=== PATIENT | female | born 1995 | race Caucasian/White ===

== ENCOUNTER → 2016-12-11 | Outpatient (REF) | payer OTHER, MEDICAID ==
[~2016-12-11] MED LIST: ACET50TA PO; DOCU10ELUD PO; IBUP600T26 PO; MOM30SS PO; PRIL20CA OR; PRIL40CA PO; SYNT112T OR; anusol TOP; colace; mom; mom OR; motrin; tylenol
== END | disposition home or self-care (01) ==
LOC: M SFHCLERA 10:06
PROVIDERS: ATTEND Nurse Practitioner Family
DX: R39.9 Unspecified symptoms and signs involving the genitourinary system (principal)

== ENCOUNTER → 2017-05-11 | Outpatient (REF) | payer MEDICAID, OTHER, SELFPAY | LOC: M SFHCLERA 14:06 | PROVIDERS: ATTEND Physician Assistant | DX: Z20.2 Contact with and (suspected) exposure to infections with a predominantly sexual mode of transmission (principal); N89.8 Other specified noninflammatory disorders of vagina ==

== ENCOUNTER → 2019-05-02 | Outpatient (REF) | payer OTHER ==
[~2019-05-02] MED LIST changes: -ACET50TA PO; -DOCU10ELUD PO; +DOCU5LIQ PO; +MAPA500T17 PO
[2019-05-02 12:40] LABS: HEMOGLOBIN 13.1 g/dl (12.0-15.5); MEAN CORPUSCULAR HEMOGLOBIN 29.1 pg (27.0-33.0); MEAN CORPUSCULAR HGB CONC 33.6 g/dl (32.0-36.5); MEAN CORPUSCULAR VOLUME 86.7 fl (80.0-96.0); PLATELET COUNT, AUTOMATED 249 10^3/uL (150-450); WHITE BLOOD COUNT 7.4 10^3/uL (4.0-10.0)
[2019-05-02 13:10] LABS: ALBUMIN 3.8 GM/DL (3.2-5.2); ALT/SGPT 53 U/L (12-78); BILIRUBIN,TOTAL 0.3 MG/DL (0.2-1.0); BLOOD UREA NITROGEN 5 MG/DL (7-18); CALCIUM LEVEL 8.9 MG/DL (8.5-10.1); CARBON DIOXIDE LEVEL 25 MEQ/L (21-32); CHLORIDE LEVEL 104 MEQ/L (98-107); CHOLESTEROL LEVEL 211 MG/DL (<200); CHOLESTEROL RISK RATIO 5.861 (<5); CREATININE FOR GFR 0.56 MG/DL (0.55-1.30); FREE T4 1.04 NG/DL (0.76-1.46); GLOMERULAR FILTRATION RATE > 60.0 (>60); GLUCOSE, FASTING 87 MG/DL (70-100); HDL CHOLESTEROL 36 MG/DL (>40); LDL CHOLESTEROL 155 MG/DL (<100); NON-HDL-C 175 MG/DL; POTASSIUM SERUM 4.2 MEQ/L (3.5-5.1); SODIUM LEVEL 138 MEQ/L (136-145); TOTAL PROTEIN 7.6 GM/DL (6.4-8.2); TRIGLYCERIDES LEVEL 99 MG/DL (<150)
== END ==
LOC: M SFHCLERA 09:42
PROVIDERS: ATTEND Nurse Practitioner Family
DX: Z13.220 Encounter for screening for lipoid disorders (principal); E03.8 Other specified hypothyroidism; N92.6 Irregular menstruation, unspecified
CPT/HCPCS: 80053; 80061; 81025; 84439; 84443; 84702; 85027; G0463

== ENCOUNTER → 2019-05-11 | Outpatient (REF) | payer OTHER ==
[2019-05-11 14:05] LABS: HEMATOCRIT 38.3 % (36.0-47.0); HEMOGLOBIN 13.2 g/dl (12.0-15.5); MEAN CORPUSCULAR HEMOGLOBIN 30.6 pg (27.0-33.0); MEAN CORPUSCULAR HGB CONC 34.5 g/dl (32.0-36.5); MEAN CORPUSCULAR VOLUME 88.9 fl (80.0-96.0); PLATELET COUNT, AUTOMATED 196 10^3/uL (150-450); RED BLOOD COUNT 4.31 10^6/uL (4.00-5.40)
[2019-05-11 14:20] LABS: HCG, SERUM QUANTITATIVE 11680 MIU/ML
[2019-05-11 14:24] LABS: HEPATITIS B SURFACE ANTIGEN NEGATIVE (NEGATIVE); RUBELLA IgG QUALITATIVE IMMUNE (IMMUNE)
[2019-05-11 14:52] LABS: HEPATITIS C VIRUS ABY INDEX 0.1 INDEX (<0.8)
[2019-05-11 14:53] LABS: HIV 1&2 SCREEN CENTAUR NEGATIVE (NEGATIVE)
== END ==
LOC: M LAB REF 12:41
PROVIDERS: ATTEND Nurse Practitioner Women's Health
DX: O36.80X0 Pregnancy with inconclusive fetal viability, not applicable or unspecified (principal)

== ENCOUNTER → 2019-06-09 | Outpatient (REF) | payer OTHER ==
[2019-06-09 13:54] LABS: FREE T4 0.89 NG/DL (0.76-1.46); THYROID STIMULATING HORMONE 4.29 uIU/ML (0.358-3.740)
== END ==
LOC: M LAB REF 12:35
PROVIDERS: ATTEND Nurse Practitioner Women's Health
DX: Z34.81 Encounter for supervision of other normal pregnancy, first trimester (principal)

== ENCOUNTER → 2019-08-04 | Outpatient (REF) | payer OTHER ==
[2019-08-04 13:52] LABS: FREE T4 0.89 NG/DL (0.76-1.46); THYROID STIMULATING HORMONE 3.15 uIU/ML (0.358-3.740)
== END ==
LOC: M LAB REF 12:36
PROVIDERS: ATTEND Nurse Practitioner Women's Health
DX: E03.9 Hypothyroidism, unspecified (principal)

== ENCOUNTER → 2019-10-13 | Outpatient (CLI) | payer OTHER ==
[2019-10-13 11:51] LABS: HEMATOCRIT 34.8 % (36.0-47.0); HEMOGLOBIN 11.8 g/dl (12.0-15.5); MEAN CORPUSCULAR HEMOGLOBIN 30.1 pg (27.0-33.0); MEAN CORPUSCULAR HGB CONC 33.9 g/dl (32.0-36.5); MEAN CORPUSCULAR VOLUME 88.8 fl (80.0-96.0); PLATELET COUNT, AUTOMATED 175 10^3/uL (150-450); RED BLOOD COUNT 3.92 10^6/uL (4.00-5.40); WHITE BLOOD COUNT 8.3 10^3/uL (4.0-10.0)
[2019-10-13 12:21] LABS: FREE T4 0.89 NG/DL (0.76-1.46); THYROID STIMULATING HORMONE 2.15 uIU/ML (0.358-3.740)
== END ==
LOC: M LRY 09:02
PROVIDERS: ATTEND Nurse Practitioner Women's Health
DX: Z36.89 Encounter for other specified antenatal screening (principal); O99.284 Endocrine, nutritional and metabolic diseases complicating childbirth; E03.9 Hypothyroidism, unspecified; Z3A.00 Weeks of gestation of pregnancy not specified

== ENCOUNTER → 2019-10-21 | Outpatient (CLI) | payer OTHER | LOC: M LAB 08:07 | PROVIDERS: ATTEND Nurse Practitioner Women's Health | DX: R73.02 Impaired glucose tolerance (oral) (principal) ==

== ENCOUNTER → 2019-11-16 | Outpatient (REF) | payer OTHER ==
[2019-11-17 13:45] LABS: APPEARANCE, URINE CLEAR (CLEAR); BACTERIA, URINE AUTO 1+ (NEGATIVE); BILIRUBIN, URINE AUTO NEGATIVE (NEGATIVE); BLOOD, URINE BLOOD 1+ (NEGATIVE); COLOR, URINE STRAW (YELLOW); GLUCOSE, URINE (UA) AUTO NEGATIVE (NEGATIVE); KETONE, URINE AUTO NEGATIVE (NEGATIVE); LEUKOCYTE ESTERASE, URINE AUTO NEGATIVE (NEGATIVE); MUCUS, URINE SMALL (NEGATIVE); NITRITE, URINE AUTO NEGATIVE (NEGATIVE); PROTEIN, URINE AUTO NEGATIVE (NEGATIVE); RBC, URINE AUTO 0 /HPF (0-3); SPECIFIC GRAVITY URINE AUTO 1.005 (1.002-1.035); SQUAMOUS EPITHELIAL CELL UR AU 1 /HPF (0-6); UROBILINOGEN, URINE AUTO 0.2 mg/dL (0.0-2.0); WBC, URINE AUTO 0 /HPF (0-3)
== END ==
LOC: M LAB REF 12:09
PROVIDERS: ATTEND Obstetrics & Gynecology
DX: R10.30 Lower abdominal pain, unspecified (principal)

== ENCOUNTER → 2019-11-18 | Outpatient (REF) | payer OTHER ==
[2019-11-18 17:04] LABS: FREE T4 0.91 NG/DL (0.76-1.46); THYROID STIMULATING HORMONE 2.5 uIU/ML (0.358-3.740)
== END ==
LOC: M SFHCLERA 12:24
PROVIDERS: ATTEND Nurse Practitioner Family
DX: E03.8 Other specified hypothyroidism (principal)
CPT/HCPCS: 84439; 84443; G0463

== ENCOUNTER → 2019-12-08 | Outpatient (REF) | payer OTHER | LOC: M LAB REF 12:51 | PROVIDERS: ATTEND Obstetrics & Gynecology | DX: Z34.83 Encounter for supervision of other normal pregnancy, third trimester (principal) ==

== ENCOUNTER 2019-12-18 09:54 | Outpatient (CLI) | payer OTHER ==
[~2019-12-18] VITALS: Ht 167.6 cm; Wt 145.4 kg
[2019-12-18 10:19] VITALS: BP 126/70
[2019-12-18] MEDS ORDERED: PRENTAB9 PO (10:34)
[2019-12-18 10:35] VITALS: BP 123/70
[2019-12-18 10:51] VITALS: BP 134/75
[2019-12-18 11:24] VITALS: BP 124/80
[2019-12-18 11:29] LABS: BASO % 0.4 % (0.0-1.0); EOS % 0.8 % (0.0-3.0); HEMATOCRIT 34.5 % (36.0-47.0); HEMOGLOBIN 11.4 g/dl (12.0-15.5); LYMPH # 0.7 10^3/uL (1.5-5.0); LYMPH % 13.9 % (24.0-44.0); MEAN CORPUSCULAR HEMOGLOBIN 28.4 pg (27.0-33.0); MONO # 0.6 10^3/uL (0.0-0.8); MONO % 11.3 % (0.0-5.0); NEUTROPHILS # 3.9 10^3/uL (1.5-8.5); NEUTROPHILS % 73.4 % (36.0-66.0); PLATELET COUNT, AUTOMATED 143 10^3/uL (150-450); RED BLOOD COUNT 4.01 10^6/uL (4.00-5.40); WHITE BLOOD COUNT 5.2 10^3/uL (4.0-10.0)
[2019-12-18 11:38] VITALS: BP 130/80
[2019-12-18 11:51] VITALS: BP 119/76
[2019-12-18 11:53] LABS: CREATININE,RANDOM URINE 70.8 MG/DL; TOTAL PROTEIN,RANDOM URINE 16.5 MG/DL (0.0-12.0)
[2019-12-18 11:58] LABS: ALBUMIN 2.7 GM/DL (3.2-5.2); ALT/SGPT 29 U/L (12-78); BILIRUBIN,TOTAL 0.2 MG/DL (0.2-1.0); BLOOD UREA NITROGEN 4 MG/DL (7-18); CARBON DIOXIDE LEVEL 22 MEQ/L (21-32); CHLORIDE LEVEL 108 MEQ/L (98-107); CREATININE FOR GFR 0.48 MG/DL (0.55-1.30); GLOMERULAR FILTRATION RATE > 60.0 (>60); GLUCOSE, FASTING 81 MG/DL (70-100); POTASSIUM SERUM 4.2 MEQ/L (3.5-5.1); SODIUM LEVEL 139 MEQ/L (136-145); TOTAL PROTEIN 6.5 GM/DL (6.4-8.2); URIC ACID 3.6 MG/DL (2.6-6.0)
[2019-12-18] MEDS ORDERED: ACETAMINOPHEN 500 MG TAB As Ordered ONE (12:17)
[2019-12-18] MEDS ORDERED: ACETAMINOPHEN 500 MG TAB PO ONE (12:45)
[2019-12-18] MEDS ORDERED: LR 1,000 ML IV SCH (13:00)
== END 2019-12-18 14:19 | disposition home or self-care (01) ==
LOC: M LDO 09:54
PROVIDERS: ATTEND Obstetrics & Gynecology
DX: Z03.79 Encounter for other suspected maternal and fetal conditions ruled out (principal); R03.0 Elevated blood-pressure reading, without diagnosis of hypertension; O99.280 Endocrine, nutritional and metabolic diseases complicating pregnancy, unspecified trimester; E03.9 Hypothyroidism, unspecified; O24.313 Unspecified pre-existing diabetes mellitus in pregnancy, third trimester; E11.9 Type 2 diabetes mellitus without complications; Z3A.37 37 weeks gestation of pregnancy
CPT/HCPCS: 59025; 80053; 82570; 84156; 84550; 85025; G0378; G0463

== ENCOUNTER 2019-12-27 15:08 | Inpatient (IN) | payer OTHER ==
[2019-12-27] VITALS (21 sets, daily range): BP systolic 138–192; BP diastolic 76–114
[~2019-12-27] VITALS: Ht 167.6 cm; Wt 143.6 kg
[~2019-12-27 15:08] MED LIST changes: +PRENTAB9 PO
[2019-12-27] MEDS ORDERED: LACTATED RINGER'S 1000 ML IV STA (15:34)
[2019-12-27] MEDS ORDERED: LR 1,000 ML IV SCH (15:34)
[2019-12-27] MEDS ORDERED: miSOPROStol 50 MCG 1/2 TAB (S0191) PO SCH (15:45)
[2019-12-27 17:32] LABS: HEMOGLOBIN 11.5 g/dl (12.0-15.5); MEAN CORPUSCULAR HEMOGLOBIN 29.3 pg (27.0-33.0); MEAN CORPUSCULAR HGB CONC 34.8 g/dl (32.0-36.5); MEAN CORPUSCULAR VOLUME 84.2 fl (80.0-96.0); PLATELET COUNT, AUTOMATED 159 10^3/uL (150-450); RED BLOOD COUNT 3.92 10^6/uL (4.00-5.40); WHITE BLOOD COUNT 5.7 10^3/uL (4.0-10.0)
[2019-12-27 18:02] LABS: ALT/SGPT 22 U/L (12-78); BILIRUBIN,TOTAL 0.2 MG/DL (0.2-1.0); BLOOD UREA NITROGEN 6 MG/DL (7-18); CARBON DIOXIDE LEVEL 22 MEQ/L (21-32); CHLORIDE LEVEL 108 MEQ/L (98-107); CREATININE FOR GFR 0.37 MG/DL (0.55-1.30); GLOMERULAR FILTRATION RATE > 60.0 (>60); GLUCOSE, FASTING 75 MG/DL (70-100); LDH LACTATE DEHYDROGENASE 255 U/L (84-246); SODIUM LEVEL 140 MEQ/L (136-145); URIC ACID 4.3 MG/DL (2.6-6.0)
[2019-12-27 18:55] LABS: TOTAL PROTEIN,RANDOM URINE 45.6 MG/DL (0.0-12.0)
[2019-12-27] MEDS ORDERED: OXYTOCIN 30 UNITS IN 0.9% NaCl 500ML IV BAG (J2590) As Ordered ONE (20:56)
[2019-12-27] MEDS ORDERED: OXYTOCIN DRIP 30 UNITS in IV 1 EA IV SCH (21:00)
[2019-12-27] MEDS ORDERED: ACETAMINOPHEN 500 MG TAB PO ONE (21:00)
[2019-12-27] MEDS ORDERED: MAGNESIUM *L&D* 4 GM/100 ML BAG (40MG/ML) (J3475) IV ONE (21:45)
[2019-12-27 22:14] LABS: ALT/SGPT 19 U/L (12-78); BILIRUBIN,TOTAL 0.2 MG/DL (0.2-1.0); CREATININE FOR GFR 0.48 MG/DL (0.55-1.30); GLOMERULAR FILTRATION RATE > 60.0 (>60); LDH LACTATE DEHYDROGENASE 176 U/L (84-246); URIC ACID 4.4 MG/DL (2.6-6.0)
[2019-12-27] MEDS ORDERED: FENTANYL 2MCG/ML ROPIVACAINE 0.2% IN 0.9% NACL 100ML IVBAG As Ordered ONE (22:36)
[2019-12-27] MEDS: MAG Sulf (OBGYN) 20GM/500ML 20,000 MG in IV 1 EA IV SCH (22:50)
[2019-12-27] MEDS ORDERED: EPIDURAL/PCA KEYS XX PRN (23:30)
[2019-12-27] MEDS ORDERED: ePHEDrine SULFATE 25 MG/5 ML(5MG/ML) SYRINGE IV PRN (23:30)
[2019-12-27] MEDS ORDERED: diphenhydrAMINE INJ 50MG/ML VIAL (J1200) IV PRN (23:30)
[2019-12-27] MEDS ORDERED: ONDANSETRON 4MG/2ML VIAL (J2405) IV PRN (23:30)
[2019-12-27] MEDS ORDERED: LACTATED RINGER'S 1000 ML IV PRN (23:30)
[2019-12-27] MEDS ORDERED: FENTANYL/ROPIVACAINE/NACL BAG 100 ML EPIDURAL SCH (23:30)
[2019-12-27] MEDS ORDERED: EPIDURAL COMMENT XX SCH (23:30)
[2019-12-27] MEDS ORDERED: REFRIGERATOR IV KEYS XX PRN (23:30)
[2019-12-27] MEDS ORDERED: NALOXONE INJ 0.4 MG/1 ML VIAL (J2310) IV PRN (23:30)
[2019-12-28] VITALS (25 sets, daily range): BP systolic 106–177; BP diastolic 54–106
[2019-12-28] MEDS ORDERED: LR 1,000 ML IV SCH (04:41)
[2019-12-28] MEDS ORDERED: ACETAMINOPHEN TAB 650MG DOSE (2X325MG) PO PRN (04:45)
[2019-12-28] MEDS ORDERED: RHOGAM 300 MCG (1500 IU) INJ (J2790) IM SCH (04:45)
[2019-12-28] MEDS ORDERED: METHYLERGONOVINE MALEATE 0.2 MG TAB PO PRN (04:45)
[2019-12-28] MEDS ORDERED: ANUSOL HC CREAM 30GM TOP PRN (04:45)
[2019-12-28] MEDS ORDERED: MEASLES,MUMPS,RUBELLA VACCINE INJ (MMR-II) (90707) SC SCH (04:45)
[2019-12-28] MEDS ORDERED: DIBUCAINE 1% OINTMENT 30GM TOP PRN (04:45)
[2019-12-28 04:49] LABS: CORD GAS ABE A -2.9; CORD GAS ABE V -2.9; CORD GAS HCO3 A 24.4 MEQ/L; CORD GAS HCO3 V 22.5 MEQ/L; CORD GAS O2 SAT A 37.8 %; CORD GAS O2 SAT V 65.5 %; CORD GAS PCO2 A 52.3 mmHg; CORD GAS PCO2 V 41.5 mmHg; CORD GAS PH A 7.287 UNITS; CORD GAS PH V 7.352 UNITS; CORD GAS PO2 A 20.9 mmHg; CORD GAS PO2 V 29.1 mmHg; CORD GAS SBC A 20.7 MEQ/L; CORD GAS SBC V 21.3 MEQ/L; CORD GAS TCO2 V 23.8 MEQ/L
[2019-12-28] MEDS: MAG Sulf (OBGYN) 20GM/500ML 20,000 MG in IV 1 EA IV SCH (05:27)
[2019-12-28] MEDS: LEVOTHYROXINE 25MCG TABLET (0.025MG) PO SCH (06:57)
--- NOTE | 2019-12-28 07:31 | HPE ---
DATE OF ADMISSION: 12/27/2019 Karly is a 24-year-old female 2, para 1-0-0-1 with an estimated date of confinement (EDC) of 01/03/2020, estimated gestational age (EGA) 39 weeks gestation. The patient has a history of gestational diabetes diet controlled, hypothyroidism currently on Synthroid and obesity. She presented after having an ultrasound done today which shows severe oligohydramnios with an KAYLEIGH of 4.1. Given the KAYLEIGH and her remaining comorbid conditions, a decision was made to admit the patient for induction. Upon admission, no bleeding, no leakage of fluid. Her records were reviewed. Other than the diabetes, obesity and her hyperthyroidism, it was essentially unremarkable. LABS: Blood type is B positive. Rubella immune. Hepatitis negative. HIV negative. GC and chlamydia negative. Group B Streptococcus (GBS) is negative. PAST MEDICAL HISTORY: Significant for: Hypothyroidism. Obesity. Gestational diabetes. PAST SURGICAL HISTORY: Pilonidal cyst removal in 2012. SOCIAL HISTORY: She is . Denies any alcohol, drugs or cigarette smoking. REVIEW OF SYSTEMS: Unremarkable. MEDICATIONS: - vitamins - Synthroid ALLERGIES: No known drug allergies. PHYSICAL EXAMINATION ON ADMISSION: Obese female in no acute distress. Blood pressures is ranging in the 140-160 systolic with a diastolic of 85-95. Her abdomen is soft, nontender, nondistended. Extremities no clubbing, cyanosis, +1 lower extremity edema. Vaginal exam 2 cm dilated, 70-80% effaced, fetus at -3 station in a vertex position. Ultrasound done today shows an KAYLEIGH of 4.1, fetus in the 50th percentile for weight. Labs reviewed. Platelet count of 150. Uric acid of 4.5. Urine protein/creatinine ratio of 0.41. LFTs within normal limits. Fingerstick on admission 106. ASSESSMENT: 1. Intrauterine at 39 weeks gestation. 2. Severe oligohydramnios. 3. Gestational diabetes diet controlled. 4. Hypothyroidism well controlled with Synthroid. 5. Obesity. PLAN: The patient will be admitted to labor and delivery. Given her current condition Induction process discussed with the patient in grave detail. Her risks were also discussed. Will initiate Cytotec induction. Will consider magnesium sulfate if the patient becomes symptomatic or her blood pressure continues to rise. Antihypertensive meds will also be considered. Pain management discussed. The patient opted for an epidural. Will continue to monitor. Anticipate delivery.
[2019-12-28 07:47] LABS: HEMATOCRIT 33.5 % (36.0-47.0); HEMOGLOBIN 11.8 g/dl (12.0-15.5); MEAN CORPUSCULAR HEMOGLOBIN 29.4 pg (27.0-33.0); MEAN CORPUSCULAR HGB CONC 35.2 g/dl (32.0-36.5); MEAN CORPUSCULAR VOLUME 83.3 fl (80.0-96.0); PLATELET COUNT, AUTOMATED 168 10^3/uL (150-450); RED BLOOD COUNT 4.02 10^6/uL (4.00-5.40); WHITE BLOOD COUNT 10.9 10^3/uL (4.0-10.0)
[2019-12-28 08:17] LABS: ALT/SGPT 21 U/L (12-78); BILIRUBIN,TOTAL 0.3 MG/DL (0.2-1.0); CREATININE FOR GFR 0.49 MG/DL (0.55-1.30); GLOMERULAR FILTRATION RATE > 60.0 (>60); LDH LACTATE DEHYDROGENASE 242 U/L (84-246); MAGNESIUM LEVEL 3.9 MG/DL (1.8-2.4); URIC ACID 4.7 MG/DL (2.6-6.0)
[2019-12-28] MEDS: PRENATAL VITAMINS CHEWABLE TABLET PO SCH (09:32)
[2019-12-28] MEDS ORDERED: MAG Sulf (OBGYN) 20GM/500ML 20,000 MG in IV 1 EA IV SCH (10:00)
--- NOTE | 2019-12-28 15:18 | DN ---
DATE OF DELIVERY: 12/28/2019 Karly is a 24-year-old female 2, para 1 with history of gestational diabetes diet control, hypothyroidism found to be with oligohydramnios. She was brought into the hospital and induced with one dose of Cytotec followed by Pitocin and artificial rupture of membranes. After an epidural, she progressed to fully dilated. She then pushed and delivered a live male infant in right occiput anterior position with a nuchal cord times one over an intact perineum. 9/9, weight 7 pounds 14 ounces. Placenta delivered spontaneously intact. Three-vessel cord. Perineum, vagina and cervix inspected. No laceration. Estimated blood loss 300 mL. Both mother and baby in stable condition.
[2019-12-28] MEDS: ACETAMINOPHEN 500 MG TAB PO PRN ×2 (16:11→22:09)
[2019-12-28] MEDS: HEPARIN SOD (PORCINE) 5000 UNITS/ML VIAL (J1644 PER 1000UNITS) SQ SCH ×2 (21:00→22:09)
[2019-12-28] MEDS: LABETALOL 200 MG TAB PO SCH ×2 (21:00→21:21)
[2019-12-28] MEDS: DOCUSATE SODIUM 100 MG CAP PO SCH ×2 (21:00→21:20)
[2019-12-29] VITALS (10 sets, daily range): BP systolic 137–158; BP diastolic 69–88
[2019-12-29] MEDS ORDERED: LEVOTHYROXINE 75MCG TABLET (0.075MG) PO SCH (06:00)
[2019-12-29] MEDS: ACETAMINOPHEN 500 MG TAB PO PRN ×2 (07:15→23:14)
[2019-12-29] MEDS: LABETALOL 200 MG TAB PO SCH ×2 (08:46→21:07)
[2019-12-29] MEDS: DOCUSATE SODIUM 100 MG CAP PO SCH ×2 (08:46→21:07)
[2019-12-29] MEDS: PRENATAL VITAMINS CHEWABLE TABLET PO SCH (08:46)
[2019-12-29] MEDS: HEPARIN SOD (PORCINE) 5000 UNITS/ML VIAL (J1644 PER 1000UNITS) SQ SCH (08:53)
[2019-12-29] MEDS ORDERED: SLF 3 ML SYR IV PRN (09:15)
[2019-12-29] MEDS ORDERED: SLF 3 ML SYR IV SCH (14:00)
[2019-12-30 02:00] VITALS: BP 147/71
[2019-12-30 06:00] VITALS: BP 147/77
[2019-12-30] MEDS: LEVOTHYROXINE 25MCG TABLET (0.025MG) PO SCH (06:41)
[2019-12-30] MEDS ORDERED: ADACEL/BOOSTRIX VACCINE (DIPHTH/PERTUSS/ACELL/TETANUS)0.5ML SYR (90715) IM ONE (09:00)
[2019-12-30] MEDS ORDERED: LABE20TAB PO (09:00)
[2019-12-30] MEDS: PRENATAL VITAMINS CHEWABLE TABLET PO SCH (09:00)
[2019-12-30] MEDS: DOCUSATE SODIUM 100 MG CAP PO SCH (09:29)
[2019-12-30 09:32] VITALS: BP 137/74
[2019-12-30] MEDS: LABETALOL 200 MG TAB PO SCH (09:32)
== END 2019-12-30 13:30 | disposition home or self-care (01) | DRG 806 ==
LOC: EEVIPCON 15:08 → M LDI 15:08 → M OBS 12-29 10:28 → M LDI 12-29 10:31 → M PCU 12-29 10:38 → M LDI 12-29 10:47 → M OBS 12-29 15:20
PROVIDERS: ADMIT Obstetrics & Gynecology; ATTEND Obstetrics & Gynecology
PROC: 3E0P7GC Introduction of Other Therapeutic Substance into Female Reproductive, Via Natural or Artificial Opening (ICD-10-PCS; 2019-12-27)
PROC: 10E0XZZ Delivery of Products of Conception, External Approach (ICD-10-PCS; principal; 2019-12-28)
PROC: 10907ZC Drainage of Amniotic Fluid, Therapeutic from Products of Conception, Via Natural or Artificial Opening (ICD-10-PCS; 2019-12-28)
DX: O24.420 Gestational diabetes mellitus in childbirth, diet controlled (principal); Z37.0 Single live birth; O41.03X0 Oligohydramnios, third trimester, not applicable or unspecified; Z3A.39 39 weeks gestation of pregnancy; O99.284 Endocrine, nutritional and metabolic diseases complicating childbirth; E03.9 Hypothyroidism, unspecified; O99.214 Obesity complicating childbirth; E66.9 Obesity, unspecified; O69.81X0 Labor and delivery complicated by cord around neck, without compression, not applicable or unspecified

== ENCOUNTER → 2020-08-01 | Outpatient (CLI) | payer OTHER ==
[~2020-08-01] MED LIST changes: +LABE20TAB PO
--- NOTE | 2020-08-07 11:23 | REP ---
FIRST TRIMESTER OBSTETRICAL ULTRASOUND CLINICAL: Dating and viability. TECHNIQUE: Transabdominal first trimester obstetrical ultrasound with color Doppler evaluation. FINDINGS: Bladder is normal and measures 14.4 x 6.3 x 10.1 cm. Single live early intrauterine identified. Gestational sac with yolk sac and pole noted. [place]-rump length (CRL) of 19 mm corresponds to 8 weeks 3 days gestational age with estimated date of delivery 03/10/2021. heart rate equals 171 beats per minute. IMPRESSION: Single live intrauterine at 8 weeks 3 days gestational age. Complete anatomical assessment should be performed at 19-20 weeks. MTDD
== END ==
LOC: M RAD 08:59
PROVIDERS: ATTEND Obstetrics & Gynecology
DX: Z34.81 Encounter for supervision of other normal pregnancy, first trimester (principal); Z3A.08 8 weeks gestation of pregnancy

== ENCOUNTER → 2020-09-03 | Outpatient (CLI) | payer OTHER ==
[2020-09-03 18:07] LABS: BASO % 0.4 % (0.0-1.0); EOS # 0.1 10^3/uL (0.0-0.5); EOS % 1.6 % (0.0-3.0); HEMOGLOBIN 12.2 g/dl (12.0-15.5); LYMPH # 1.6 10^3/uL (1.5-5.0); LYMPH % 22.8 % (24.0-44.0); MEAN CORPUSCULAR HEMOGLOBIN 29.1 pg (27.0-33.0); MEAN CORPUSCULAR HGB CONC 33.9 g/dl (32.0-36.5); MEAN CORPUSCULAR VOLUME 85.9 fl (80.0-96.0); MONO # 0.3 10^3/uL (0.0-0.8); MONO % 4.8 % (0.0-5.0); NEUTROPHILS # 4.8 10^3/uL (1.5-8.5); PLATELET COUNT, AUTOMATED 191 10^3/uL (150-450); RED BLOOD COUNT 4.19 10^6/uL (4.00-5.40); WHITE BLOOD COUNT 6.9 10^3/uL (4.0-10.0)
[2020-09-03 18:12] LABS: APPEARANCE, URINE HAZY (CLEAR); BACTERIA, URINE AUTO 1+ (NEGATIVE); BILIRUBIN, URINE AUTO NEGATIVE (NEGATIVE); BLOOD, URINE BLOOD NEGATIVE (NEGATIVE); COLOR, URINE YELLOW (YELLOW); GLUCOSE, URINE (UA) AUTO NEGATIVE (NEGATIVE); KETONE, URINE AUTO NEGATIVE (NEGATIVE); LEUKOCYTE ESTERASE, URINE AUTO NEGATIVE (NEGATIVE); NITRITE, URINE AUTO NEGATIVE (NEGATIVE); PROTEIN, URINE AUTO NEGATIVE (NEGATIVE); RBC, URINE AUTO 0 /HPF (0-3); SPECIFIC GRAVITY URINE AUTO 1.015 (1.002-1.035); SQUAMOUS EPITHELIAL CELL UR AU 1 /HPF (0-6); UROBILINOGEN, URINE AUTO 0.2 mg/dL (0.0-2.0); WBC, URINE AUTO 0 /HPF (0-3)
[2020-09-03 18:23] LABS: TOTAL PROTEIN,RANDOM URINE 10.3 MG/DL (0.0-12.0)
[2020-09-03 18:30] LABS: ALBUMIN 3.3 GM/DL (3.2-5.2); ALT/SGPT 24 U/L (12-78); BILIRUBIN,DIRECT < 0.1 MG/DL (0.0-0.2); BILIRUBIN,TOTAL 0.1 MG/DL (0.2-1.0); BLOOD UREA NITROGEN 8 MG/DL (7-18); CREATININE FOR GFR 0.46 MG/DL (0.55-1.30); FREE T3 2.8 PG/ML (2.2-4.0); FREE T4 0.92 NG/DL (0.76-1.46); GLOMERULAR FILTRATION RATE > 60.0 (>60); GLUCOSE,RANDOM 102 MG/DL (LESS THAN 200); TOTAL PROTEIN 7.1 GM/DL (6.4-8.2); URIC ACID 2.6 MG/DL (2.6-6.0)
[2020-09-03 18:41] LABS: HEPATITIS B SURFACE ANTIGEN NEGATIVE (NEGATIVE)
[2020-09-03 19:09] LABS: HIV 1&2 SCREEN CENTAUR NEGATIVE (NEGATIVE)
== END ==
LOC: M LAB 16:47
PROVIDERS: ATTEND Nurse Practitioner Adult Health
DX: Z34.81 Encounter for supervision of other normal pregnancy, first trimester (principal); Z3A.00 Weeks of gestation of pregnancy not specified

== ENCOUNTER → 2020-10-05 | Outpatient (CLI) | payer OTHER ==
[2020-10-05 17:11] LABS: FREE T4 0.98 NG/DL (0.76-1.46); THYROID STIMULATING HORMONE 3.2 uIU/ML (0.358-3.740)
== END ==
LOC: M WUC 14:35
PROVIDERS: ATTEND Nurse Practitioner Family
DX: E06.3 Autoimmune thyroiditis (principal)

== ENCOUNTER → 2020-10-15 | Outpatient (CLI) | payer OTHER ==
--- NOTE | 2020-10-16 10:22 | REP ---
INDICATION: ANATOMY. COMPARISON: Comparison study August 01, 2020.. TECHNIQUE: Transabdominal obstetric sonography. FINDINGS: Scanning through the gravid uterus demonstrates a viable single intrauterine gestation in cephalic lie. motion is observed and heart rate is recorded at 163 beats per minute. A posterior placenta is seen, grade 0, without evidence of placenta previa. Amniotic fluid is subjectively normal. Closed cervical length is measured at 4.8 cm transabdominally. No extrauterine abnormality is observed. The following anatomic structures are identified felt to be unremarkable today: Choroid plexus, orbits, diaphragm, left-sided stomach, abdominal wall cord insertion, urinary bladder, spine, upper and lower extremities, and 3 vessel cord. Exam quality was inhibited by maternal body habitus. Other anatomic structures are less than optimally seen.. Biometry chart: BPD 4.7 cm, 20 weeks 1 day Head circumference 16.9 cm, 19 weeks 4 days Abdominal circumference 14.6 cm, 19 weeks 6 days Femur length 3.4 cm, 20 weeks 6 days Humeral length 3.1 cm, 20 weeks 2 days HC AC ratio normal 1.16 Cephalic index normal 0.78 Estimated weight 341 g, 0 lb 12 oz IMPRESSION: Viable single intrauterine gestation at 20 weeks 1 days by today's composite sonographic criteria. RAFAEL by today's sonography March 03, 2021. No complication identified. Expected gestational age estimate based on prior sonography is 20 weeks 0 days. RAFAEL by prior sonography March 04, 2021. anatomic survey incomplete due to position and maternal body habitus. <Electronically signed by Denzel Molina > 10/16/20 1514
== END ==
LOC: M RAD 15:49
PROVIDERS: ATTEND Obstetrics & Gynecology Obstetrics
DX: Z34.82 Encounter for supervision of other normal pregnancy, second trimester (principal)

== ENCOUNTER → 2020-11-05 | Outpatient (CLI) | payer OTHER ==
--- NOTE | 2020-11-05 09:43 | REP ---
INDICATION: ENCOUNTER FOR SUPERVISION OF NORMAL PREG SECOND TRIMESTER COMPARISON: 10/15/2020 TECHNIQUE: Transabdominal obstetrical ultrasound with color Doppler evaluation. FINDINGS: Examination demonstrates a single live intrauterine in cephalic presentation. motion is identified by technologist. Placenta is noted posterior/fundal and grade 1 without evidence for placenta previa or abruption. Amniotic fluid volume is normal. Cervix measures 4.8 cm in length and appears closed. No evidence for placental abruption. Gestational age by LMP 23 weeks 0 days with RAFAEL 03/04/2021. Gestational age by current measurements 22 weeks 2 days with RAFAEL 03/09/2021. FHR equals 163 beats per minute. Estimated weight 499 grams (14thpercentile). Anatomical assessment demonstrates normal structures including cranium, choroid plexus, cavum, cerebellum/posterior fossa, lungs, four-chamber heart/ventricular outflow tracts, diaphragm, stomach, cord insertion/three-vessel cord, kidneys/bladder, and extremities. Limited evaluation of the facial features and spine noted. IMPRESSION: Current examination demonstrates single live intrauterine in cephalic presentation demonstrating appropriate interval growth. Anatomical limitations as described above may warrant re-evaluation and follow-up. <Electronically signed by Christian Gonsalez > 11/05/20 0927
== END ==
LOC: M RAD 08:06
DX: Z36.89 Encounter for other specified antenatal screening (principal); Z3A.22 22 weeks gestation of pregnancy

== ENCOUNTER → 2020-11-07 | Outpatient (CLI) | payer OTHER ==
[2020-11-07 19:52] LABS: FREE T4 0.93 NG/DL (0.76-1.46); THYROID STIMULATING HORMONE 2.6 uIU/ML (0.358-3.740)
== END ==
LOC: M WUC 16:23
PROVIDERS: ATTEND Obstetrics & Gynecology
DX: E03.9 Hypothyroidism, unspecified (principal)

== ENCOUNTER → 2020-11-25 | Outpatient (REF) | payer OTHER ==
[2020-11-26 18:25] LABS: CREATININE, SERUM 0.6 MG/DL (0.6-1.0)
[2020-11-26 18:48] LABS: CREATININE CLEARANCE, URINE 220.8 ML/MIN (75-115); URINE TOTAL PROTEIN 6.5 MG/DL (0-12)
== END ==
LOC: M LAB REF 14:58
PROVIDERS: ATTEND Nurse Practitioner Adult Health
DX: Z34.81 Encounter for supervision of other normal pregnancy, first trimester (principal)

== ENCOUNTER → 2020-11-26 | Outpatient (CLI) | payer OTHER | LOC: M LAB 15:50 | PROVIDERS: ATTEND Nurse Practitioner Adult Health | DX: Z34.81 Encounter for supervision of other normal pregnancy, first trimester (principal); Z3A.00 Weeks of gestation of pregnancy not specified ==

== ENCOUNTER → 2020-12-03 | Outpatient (CLI) | payer OTHER ==
--- NOTE | 2020-12-03 09:59 | REP ---
INDICATION: ANATOMY 26 WEEKS, LABS AFTER US COMPARISON: 11/05/2020 TECHNIQUE: Transabdominal obstetrical ultrasound with color Doppler evaluation. FINDINGS: Examination demonstrates a single live intrauterine in cephalic presentation. motion is identified by technologist. Placenta is noted fundal and grade 1 without evidence for placenta previa or abruption. Amniotic fluid volume is normal. Cervix measures 5.7 cm in length and appears closed.. Gestational age by LMP 27 weeks 0 days with RAFAEL 03/04/2021. Gestational age by current measurements 27 weeks 1 day with RAFAEL 03/03/2021. FHR equals 168 beats per minute. KAYLEIGH: 11.9 cm Estimated weight 987 grams (50thpercentile). Anatomical assessment demonstrates nose/lips. Facial profile is again limited in evaluation due to positioning. IMPRESSION: Single live intrauterine in cephalic presentation demonstrating appropriate interval growth and estimated weight. Limited evaluation of the facial profile due to positioning. <Electronically signed by Christian Gonsalez > 12/03/20 0903
[2020-12-03 11:30] LABS: BASO % 0.4 % (0.0-1.0); EOS # 0.1 10^3/uL (0.0-0.5); EOS % 1.5 % (0.0-3.0); HEMATOCRIT 34.7 % (36.0-47.0); HEMOGLOBIN 11.6 g/dl (12.0-15.5); LYMPH # 1.3 10^3/uL (1.5-5.0); LYMPH % 16.4 % (24.0-44.0); MEAN CORPUSCULAR HEMOGLOBIN 30.8 pg (27.0-33.0); MEAN CORPUSCULAR HGB CONC 33.4 g/dl (32.0-36.5); MONO # 0.4 10^3/uL (0.0-0.8); MONO % 4.4 % (0.0-5.0); NEUTROPHILS # 6.2 10^3/uL (1.5-8.5); NEUTROPHILS % 76.7 % (36.0-66.0); PLATELET COUNT, AUTOMATED 161 10^3/uL (150-450); RED BLOOD COUNT 3.77 10^6/uL (4.00-5.40); WHITE BLOOD COUNT 8.1 10^3/uL (4.0-10.0)
== END ==
LOC: M RAD 09:14
PROVIDERS: ATTEND Obstetrics & Gynecology
DX: Z34.82 Encounter for supervision of other normal pregnancy, second trimester (principal); Z36.89 Encounter for other specified antenatal screening; Z3A.27 27 weeks gestation of pregnancy

== ENCOUNTER → 2020-12-10 | Outpatient (CLI) | payer OTHER ==
[2020-12-10 16:51] LABS: FREE T4 0.88 NG/DL (0.76-1.46); THYROID STIMULATING HORMONE 2.86 uIU/ML (0.358-3.740)
== END ==
LOC: M PLALAB 13:36
PROVIDERS: ATTEND Nurse Practitioner Family
DX: E06.3 Autoimmune thyroiditis (principal)

== ENCOUNTER → 2021-01-16 | Outpatient (CLI) | payer OTHER ==
--- NOTE | 2021-01-16 14:55 | REP ---
INDICATION: PREG, GEST DIABETES/PREECLAMPSIA. COMPARISON: 12/03/2020 TECHNIQUE: Real-time sonographic evaluation of the gravid uterus performed. FINDINGS: Estimated gestational age is33 weeks 2 days, EDC 03/04/2021. Presentation: Cephalic heart rate is recorded at 171 beats per minute. Amniotic fluid is subjectively normal. KAYLEIGH 18.3, normal range 8.2-24.6. Biophysical profile score 8/8. SD ratio umbilical artery 2.29, normal 1.77-3.74. RI 0.56, normal 0.48-0.74. Closed cervical length is measured at 4.9 cm. IMPRESSION: Viable single intrauterine gestation as above. Biophysical profile score 8/8. <Electronically signed by Damian Silva > 01/16/21 0128
== END ==
LOC: M RAD 14:06
PROVIDERS: ATTEND Obstetrics & Gynecology
DX: Z34.83 Encounter for supervision of other normal pregnancy, third trimester (principal)

== ENCOUNTER → 2021-01-27 | Outpatient (CLI) | payer OTHER ==
[2021-01-27 16:02] LABS: HEMATOCRIT 34.6 % (36.0-47.0); HEMOGLOBIN 11.7 g/dl (12.0-15.5); MEAN CORPUSCULAR HEMOGLOBIN 30.6 pg (27.0-33.0); MEAN CORPUSCULAR HGB CONC 33.8 g/dl (32.0-36.5); MEAN CORPUSCULAR VOLUME 90.6 fl (80.0-96.0); PLATELET COUNT, AUTOMATED 152 10^3/uL (150-450); RED BLOOD COUNT 3.82 10^6/uL (4.00-5.40); WHITE BLOOD COUNT 8.7 10^3/uL (4.0-10.0)
[2021-01-27 16:24] LABS: ALBUMIN 2.8 GM/DL (3.2-5.2); ALT/SGPT 15 U/L (12-78); BILIRUBIN,DIRECT < 0.1 MG/DL (0.0-0.2); BILIRUBIN,TOTAL 0.1 MG/DL (0.2-1.0); BLOOD UREA NITROGEN 6 MG/DL (7-18); CALCIUM LEVEL 8.6 MG/DL (8.5-10.1); CARBON DIOXIDE LEVEL 23 MEQ/L (21-32); CHLORIDE LEVEL 107 MEQ/L (98-107); GLOMERULAR FILTRATION RATE > 60.0 (>60); GLUCOSE, FASTING 87 MG/DL (70-100); LDH LACTATE DEHYDROGENASE 167 U/L (84-246); SODIUM LEVEL 138 MEQ/L (136-145); TOTAL PROTEIN 6.7 GM/DL (6.4-8.2); URIC ACID 3.3 MG/DL (2.6-6.0)
== END ==
LOC: M LAB 14:45
PROVIDERS: ATTEND Obstetrics & Gynecology
DX: Z34.83 Encounter for supervision of other normal pregnancy, third trimester (principal); Z3A.00 Weeks of gestation of pregnancy not specified

== ENCOUNTER → 2021-01-29 | Outpatient (CLI) | payer OTHER ==
[2021-01-29 13:53] LABS: CREATININE CLEARANCE, URINE 492.6 ML/MIN (75-115); CREATININE, SERUM 0.3 MG/DL (0.6-1.0); CREATININE, URINE 60.8 MG/DL; URINE TOTAL PROTEIN 16.2 MG/DL (0-12)
== END ==
LOC: M LAB 11:10
PROVIDERS: ATTEND Obstetrics & Gynecology
DX: Z34.83 Encounter for supervision of other normal pregnancy, third trimester (principal); Z3A.00 Weeks of gestation of pregnancy not specified

== ENCOUNTER → 2021-01-31 | Outpatient (CLI) | payer OTHER ==
--- NOTE | 2021-01-31 11:25 | REP ---
INDICATION: ENCOUNTER FOR SUPRVSN OF NORMAL , 3RD TRI. COMPARISON: 01/16/2021. TECHNIQUE: Real-time sonographic evaluation of the gravid uterus performed. FINDINGS: Estimated gestational age is35 weeks 3 days, EDC 03/04/2021. Presentation: Cephalic Placenta fundal, grade 2, without evidence of placenta previa. There is a velamentous cord insertion superiorly and anteriorly. heart rate is recorded at 156 beats per minute. Amniotic fluid is subjectively normal. KAYLEIGH 15.0, normal range 7.8-24.9. Biophysical profile score 8/8. SD ratio umbilical artery 2.55, normal 1.66-3.56. RI 0.61, normal 0.46-0.72. Closed cervical length is measured at 4.4 cm. IMPRESSION: Viable single intrauterine gestation as above. There is a velamentous cord insertion superiorly and anteriorly. Biophysical profile score 8/8. <Electronically signed by Damian Silva > 01/31/21 1126
== END ==
LOC: M RAD 10:02
PROVIDERS: ATTEND Obstetrics & Gynecology
DX: Z34.83 Encounter for supervision of other normal pregnancy, third trimester (principal); Z3A.35 35 weeks gestation of pregnancy

== ENCOUNTER → 2021-02-07 | Outpatient (CLI) | payer OTHER ==
--- NOTE | 2021-02-07 11:00 | REP ---
INDICATION: GEST DIABETES COMPARISON: 01/31/2021 TECHNIQUE: Transabdominal obstetrical ultrasound with color Doppler evaluation. FINDINGS: Examination demonstrates a single live intrauterine in cephalic presentation. motion is identified by technologist. Placenta is noted fundal and grade 2 without evidence for placenta previa or abruption. Velamentous cord insertion on the placenta as described prior examination is not visible on current exam. Amniotic fluid volume somewhat greater than normal range. Cervix measures 3.8 cm in length and appears closed. KAYLEIGH: 25.5 cm (7.6-24.7) Umbilical artery SD ratio: 2.00 (1.62-3.48) Biophysical profile score: 8/8. IMPRESSION: 1. Amniotic fluid index is beyond normal range suggesting early polyhydramnios. 2. Biophysical profile score normal. 3. Velamentous cord insertion noted on prior examination, but not visible on current exam. <Electronically signed by Christian Gonsalez > 02/07/21 1056
== END ==
LOC: M RAD 10:13
PROVIDERS: ATTEND Obstetrics & Gynecology
DX: Z34.83 Encounter for supervision of other normal pregnancy, third trimester (principal); Z3A.00 Weeks of gestation of pregnancy not specified

== ENCOUNTER → 2021-04-29 | Outpatient (CLI) | payer OTHER ==
[2021-04-29 12:23] LABS: FREE T4 1.02 NG/DL (0.76-1.46); THYROID STIMULATING HORMONE 3.19 uIU/ML (0.358-3.740)
== END ==
LOC: M WUC 09:11
PROVIDERS: ATTEND Nurse Practitioner Family
DX: E06.3 Autoimmune thyroiditis (principal)

== ENCOUNTER → 2021-09-03 | Outpatient (CLI) | payer OTHER ==
[2021-09-03 17:09] LABS: FREE T4 0.96 NG/DL (0.76-1.46); THYROID STIMULATING HORMONE 4.25 uIU/ML (0.358-3.740)
== END ==
LOC: M WUC 14:30
PROVIDERS: ATTEND Nurse Practitioner Family
DX: E06.3 Autoimmune thyroiditis (principal)

== ENCOUNTER → 2021-12-14 | Outpatient (REF) | payer OTHER | LOC: M LABSMTC 11:22 | PROVIDERS: ATTEND Family Medicine | DX: Z20.822 Contact with and (suspected) exposure to COVID-19 (principal) ==

== ENCOUNTER → 2022-08-22 | Outpatient (CLI) | payer OTHER, SELFPAY ==
[2022-08-22 17:34] LABS: FREE T4 0.85 NG/DL (0.76-1.46); THYROID STIMULATING HORMONE 5.39 uIU/ML (0.358-3.740)
== END ==
LOC: M WUC 13:22
PROVIDERS: ATTEND Student in an Organized Health Care Education/Training Program
DX: E03.8 Other specified hypothyroidism (principal)

== ENCOUNTER → 2022-12-23 | Outpatient (CLI) | payer OTHER ==
[2022-12-23 13:21] LABS: FREE T4 1.11 NG/DL (0.89-1.76)
[2022-12-23 13:23] LABS: THYROID STIMULATING HORMONE 2.425 uIU/ML (0.55-4.78)
== END ==
LOC: M WUC 09:32
PROVIDERS: ATTEND Nurse Practitioner Family
DX: E06.3 Autoimmune thyroiditis (principal)

== ENCOUNTER 2023-09-25 20:09 | Emergency (ER) | payer OTHER ==
[~2023-09-25] VITALS: Ht 167.6 cm; Wt 128.9 kg
[2023-09-25 21:37] LABS: BASO % 0.2 % (0.0-1.0); EOS # 0.1 10^3/uL (0.0-0.5); EOS % 2.9 % (0.0-3.0); HEMATOCRIT 41.5 % (36.0-47.0); HEMOGLOBIN 14.1 g/dl (12.0-15.5); LYMPH # 0.8 10^3/uL (1.5-5.0); LYMPH % 19.6 % (24.0-44.0); MEAN CORPUSCULAR HEMOGLOBIN 29.5 pg (27.0-33.0); MEAN CORPUSCULAR VOLUME 86.8 fl (80.0-96.0); MONO # 0.4 10^3/uL (0.0-0.8); MONO % 9.2 % (2.0-8.0); NEUTROPHILS # 2.8 10^3/uL (1.5-8.5); NEUTROPHILS % 67.9 % (36.0-66.0); PLATELET COUNT, AUTOMATED 167 10^3/uL (150-450); RED BLOOD COUNT 4.78 10^6/uL (4.00-5.40); WHITE BLOOD COUNT 4.1 10^3/uL (4.0-10.0)
[2023-09-25 22:02] LABS: ALBUMIN 4.2 G/DL (3.2-5.2); BILIRUBIN,DIRECT 0.2 MG/DL (<0.4); BILIRUBIN,TOTAL 0.5 MG/DL (0.3-1.2); TOTAL PROTEIN 7.7 G/DL (5.7-8.2)
[2023-09-25] MEDS ORDERED: KETOROLAC 30 MG/ML 1ML VIAL IV ONE (23:55)
[2023-09-26] MEDS ORDERED: ISOVUE-370 76% 100ML VIAL As Ordered ONE (00:03)
[2023-09-26 01:30] VITALS: BP 130/88; TEMP 98; O2SAT 99
[2023-09-26] MEDS ORDERED: METH-1164 PO (01:38)
== END 2023-09-26 02:34 | disposition home or self-care (01) ==
LOC: M ED 20:09
DX: M54.9 Dorsalgia, unspecified (principal); R16.0 Hepatomegaly, not elsewhere classified; I10 Essential (primary) hypertension; E03.9 Hypothyroidism, unspecified
CPT/HCPCS: 74177; 80047; 80076; 81001; 83690; 84702; 85025; 96374; 99284; J1885; Q9967

== ENCOUNTER → 2023-11-27 | Outpatient (CLI) | payer OTHER ==
[~2023-11-27] MED LIST changes: +METH-1164 PO
[2023-11-27 11:05] LABS: BASO % 0.7 % (0.0-1.0); EOS # 0.1 10^3/uL (0.0-0.5); HEMATOCRIT 40.2 % (36.0-47.0); HEMOGLOBIN 13.5 g/dl (12.0-15.5); LYMPH # 1.6 10^3/uL (1.5-5.0); LYMPH % 26.6 % (24.0-44.0); MEAN CORPUSCULAR HEMOGLOBIN 29.8 pg (27.0-33.0); MEAN CORPUSCULAR HGB CONC 33.6 g/dl (32.0-36.5); MEAN CORPUSCULAR VOLUME 88.7 fl (80.0-96.0); MONO # 0.4 10^3/uL (0.0-0.8); MONO % 6.7 % (2.0-8.0); NEUTROPHILS # 3.9 10^3/uL (1.5-8.5); NEUTROPHILS % 63.7 % (36.0-66.0); PLATELET COUNT, AUTOMATED 189 10^3/uL (150-450); RED BLOOD COUNT 4.53 10^6/uL (4.00-5.40); WHITE BLOOD COUNT 6.1 10^3/uL (4.0-10.0)
[2023-11-27 11:35] LABS: ALKALINE PHOSPHATASE 74 U/L (46-116); ALT/SGPT 26 U/L (7.0-40); AST/SGOT 14 U/L (<34); BILIRUBIN,TOTAL 0.4 MG/DL (0.3-1.2); BLOOD UREA NITROGEN 15 MG/DL (9-23); CALCIUM LEVEL 8.8 MG/DL (8.5-10.1); CARBON DIOXIDE LEVEL 28 MMOL/L (20-31); CHLORIDE LEVEL 103 MMOL/L (98-107); CHOLESTEROL LEVEL 188 MG/DL (<200); CHOLESTEROL RISK RATIO 4.93 (<5); CREATININE FOR GFR 0.63 MG/DL (0.55-1.30); GLOMERULAR FILTRATION RATE > 60.0 (>60); GLUCOSE, FASTING 90 MG/DL (60-100); HDL CHOLESTEROL 38.1 MG/DL (>40); LDL CHOLESTEROL 126.9 MG/DL (<100); NON-HDL-C 149.9 MG/DL; POTASSIUM SERUM 4.2 MMOL/L (3.5-5.1); SODIUM LEVEL 137 MMOL/L (136-145); TOTAL PROTEIN 7.2 G/DL (5.7-8.2); TRIGLYCERIDES LEVEL 115 MG/DL (<150)
[2023-11-27 11:37] LABS: FREE T4 0.99 NG/DL (0.89-1.76); TOTAL 25(OH) VITAMIN D 15.4 NG/ML (20.0-100.0)
[2023-11-27 11:49] LABS: HEMOGLOBIN A1c 5.2 % (4.0-6.0)
== END ==
LOC: M WUC 08:17
PROVIDERS: ATTEND Physician Assistant
DX: E03.8 Other specified hypothyroidism (principal); E66.01 Morbid (severe) obesity due to excess calories; M23.8X1 Other internal derangements of right knee; G89.29 Other chronic pain; M25.561 Pain in right knee

== ENCOUNTER 2023-12-01 17:42 | Emergency (ER) | payer OTHER ==
[~2023-12-01] VITALS: Ht 167.6 cm; Wt 130.6 kg
[2023-12-01 18:54] LABS: BASO # 0.1 10^3/uL (0.0-0.2); BASO % 0.7 % (0.0-1.0); EOS # 0.1 10^3/uL (0.0-0.5); EOS % 1.2 % (0.0-3.0); HEMATOCRIT 40.3 % (36.0-47.0); HEMOGLOBIN 13.7 g/dl (12.0-15.5); LYMPH # 1.7 10^3/uL (1.5-5.0); LYMPH % 25.6 % (24.0-44.0); MEAN CORPUSCULAR HEMOGLOBIN 29.9 pg (27.0-33.0); MONO # 0.4 10^3/uL (0.0-0.8); MONO % 5.3 % (2.0-8.0); NEUTROPHILS # 4.5 10^3/uL (1.5-8.5); NEUTROPHILS % 67.1 % (36.0-66.0); PLATELET COUNT, AUTOMATED 198 10^3/uL (150-450); RED BLOOD COUNT 4.58 10^6/uL (4.00-5.40); WHITE BLOOD COUNT 6.8 10^3/uL (4.0-10.0)
[2023-12-01 19:17] LABS: FREE T4 0.98 NG/DL (0.89-1.76); THYROID STIMULATING HORMONE 5.984 uIU/ML (0.55-4.78)
[2023-12-01] MEDS ORDERED: ACETAMINOPHEN TAB 650MG DOSE (2X325MG) PO ONE (19:20)
[2023-12-01 21:08] LABS: RSV AMPLIFICATION NEGATIVE (NEGATIVE)
[2023-12-01] MEDS ORDERED: HYDR-3363 PO (21:40)
[2023-12-01 21:55] VITALS: BP 136/93; TEMP 97.6; O2SAT 99
== END 2023-12-01 22:19 | disposition home or self-care (01) ==
LOC: M ED 17:42
DX: R06.02 Shortness of breath (principal); F41.9 Anxiety disorder, unspecified; F32.A Depression, unspecified; E06.3 Autoimmune thyroiditis; F90.0 Attention-deficit hyperactivity disorder, predominantly inattentive type; F12.90 Cannabis use, unspecified, uncomplicated; F10.10 Alcohol abuse, uncomplicated; Z79.899 Other long term (current) drug therapy

== ENCOUNTER → 2024-02-16 | Outpatient (REF) | payer OTHER ==
[~2024-02-16] MED LIST changes: +HYDR-3363 PO
[2024-02-16 12:26] LABS: THYROID STIMULATING HORMONE 1.702 uIU/ML (0.55-4.78)
[2024-02-16 12:28] LABS: FREE T4 1.13 NG/DL (0.89-1.76)
== END ==
LOC: M LABWUC 09:56
PROVIDERS: ATTEND Nurse Practitioner Family
DX: E06.3 Autoimmune thyroiditis (principal)

== ENCOUNTER → 2024-06-17 | Outpatient (CLI) | payer OTHER ==
[2024-06-17 14:46] LABS: FREE T4 1.3 NG/DL (0.89-1.76)
[2024-06-17 14:47] LABS: THYROID STIMULATING HORMONE 2.747 uIU/ML (0.55-4.78)
== END ==
LOC: M WUC 09:37
PROVIDERS: ATTEND Nurse Practitioner Family
DX: E06.3 Autoimmune thyroiditis (principal)

== ENCOUNTER → 2024-11-24 | Outpatient (CLI) | payer OTHER ==
[2024-11-24 11:38] LABS: FREE T4 1.18 NG/DL (0.89-1.76); THYROID STIMULATING HORMONE 2.726 uIU/ML (0.55-4.78)
== END ==
LOC: M WUC 08:26
PROVIDERS: ATTEND Nurse Practitioner Family
DX: E06.3 Autoimmune thyroiditis (principal)

== ENCOUNTER 2024-12-19 15:08 | Emergency (ER) | payer OTHER ==
[~2024-12-19] VITALS: Ht 167.6 cm; Wt 122.3 kg
[2024-12-19 15:10] VITALS: TEMP 97.2
[2024-12-19 18:04] LABS: BASO % 0.6 % (0.0-1.0); EOS # 0.1 10^3/uL (0.0-0.5); EOS % 1.5 % (0.0-3.0); HEMATOCRIT 37.6 % (36.0-47.0); HEMOGLOBIN 13.2 g/dl (12.0-15.5); LYMPH # 1.6 10^3/uL (1.5-5.0); LYMPH % 22.6 % (24.0-44.0); MEAN CORPUSCULAR HEMOGLOBIN 29.8 pg (27.0-33.0); MEAN CORPUSCULAR HGB CONC 35.1 g/dl (32.0-36.5); MEAN CORPUSCULAR VOLUME 84.9 fl (80.0-96.0); MONO # 0.4 10^3/uL (0.0-0.8); MONO % 5.4 % (2.0-8.0); NEUTROPHILS % 69.8 % (36.0-66.0); PLATELET COUNT, AUTOMATED 164 10^3/uL (150-450); RED BLOOD COUNT 4.43 10^6/uL (4.00-5.40); WHITE BLOOD COUNT 7.2 10^3/uL (4.0-10.0)
[2024-12-19 18:15] LABS: INR 0.99; PROTHROMBIN TIME 13.4 SECONDS (12.5-14.5)
[2024-12-19 18:38] LABS: BLOOD UREA NITROGEN 9 MG/DL (9-23); CALCIUM LEVEL 8.8 MG/DL (8.5-10.1); CARBON DIOXIDE LEVEL 26 MMOL/L (20-31); CHLORIDE LEVEL 106 MMOL/L (98-107); CREATININE FOR GFR 0.54 MG/DL (0.55-1.30); GLOMERULAR FILTRATION RATE > 60.0 (>60); GLUCOSE, FASTING 82 MG/DL (60-100); POTASSIUM SERUM 3.9 MMOL/L (3.5-5.1); SODIUM LEVEL 141 MMOL/L (136-145)
[2024-12-19 18:42] LABS: CK-MB VALUE MASS < 1.0 NG/ML (<3.6)
[2024-12-19 18:46] LABS: HCG, SERUM QUALITATIVE NEGATIVE (NEGATIVE)
[2024-12-19 18:47] LABS: CPK CREATINE PHOSPHOKINASE 68 U/L (34-145); MB/CK RELATIVE INDEX 1.47 (< OR =4)
[2024-12-19 19:08] LABS: D-DIMER QUANT < 0.27 ug/mL (<0.5)
[2024-12-19 19:30] VITALS: BP 115/77; O2SAT 98
[2024-12-19 19:51] LABS: CK-MB VALUE MASS < 1.0 NG/ML (<3.6)
[2024-12-19 20:01] LABS: CPK CREATINE PHOSPHOKINASE 64 U/L (34-145); MB/CK RELATIVE INDEX 1.56 (< OR =4)
[2024-12-19] MEDS ORDERED: HYDR-643 PO (20:41)
[2024-12-19] MEDS: KETOROLAC 30 MG/ML 1ML VIAL IV ONE (20:56)
== END 2024-12-19 21:52 | disposition home or self-care (01) ==
LOC: M ED 15:08
DX: R07.9 Chest pain, unspecified (principal); E03.9 Hypothyroidism, unspecified; F41.9 Anxiety disorder, unspecified; F10.10 Alcohol abuse, uncomplicated; Z79.899 Other long term (current) drug therapy
CPT/HCPCS: 71045; 80048; 82550; 82553; 84484; 84703; 85025; 85379; 85610; 93005; 93041; 94760; 96374; 99285; J1885